=== PATIENT | male | born 1990 | race Caucasian/White ===

== ENCOUNTER 2020-07-18 01:06 | Emergency (ER) | payer SELFPAY ==
[~2020-07-18] VITALS: Ht 172.7 cm; Wt 61.2 kg
--- NOTE | 2020-07-18 01:10 | NUR ---
Dr Campos at bedside for MSE.
[2020-07-18] MEDS ORDERED: FAMOTIDINE. 20 MG/2 ML VIAL IV ONE ×2 (01:15→01:26)
[2020-07-18] MEDS ORDERED: methylPREDNISolone SOD SUCC 125 MG/2 ML VIAL IV ONE (01:15)
[2020-07-18] MEDS ORDERED: EPIN0.3P3 IJ (01:17)
[2020-07-18] MEDS ORDERED: methylPREDNISolone SOD SUCC 125 MG/2 ML VIAL ONE (01:26)
[2020-07-18 04:42] VITALS: BP 122/76
--- NOTE | 2020-07-18 04:52 | NUR ---
Patient has been cleared for DC by Dr Campos. IV removed. Catheter intact and site benign. Pressure and 4x4 gauze applied to site. No bleeding noted.Patient discharged to home in stable condition. Written and verbal after care instructions given. Patient verbalizes understanding of instructions. Stressed follow up or return to ER for worsening s/s. Ambulated out of ER in steady gait.
== END 2020-07-18 05:00 | disposition home or self-care (01) ==
LOC: ER 01:06
DX: T78.1XXA Other adverse food reactions, not elsewhere classified, initial encounter (principal); X58.XXXA Exposure to other specified factors, initial encounter; Z86.79 Personal history of other diseases of the circulatory system; R21 Rash and other nonspecific skin eruption; R00.0 Tachycardia, unspecified; Z91.018 Allergy to other foods; Z91.048 Other nonmedicinal substance allergy status
CPT/HCPCS: 96374; 96375; 99284; J2930; J3490; A4663

== ENCOUNTER 2025-06-20 13:51 | Emergency (ER) | payer SELFPAY ==
[~2025-06-20] VITALS: Ht 172.7 cm; Wt 67.1 kg
[~2025-06-20 13:51] MED LIST: EPIN0.3P3 IJ
[2025-06-20 14:51] LABS: PLATELET COUNT (AUTO) 254 K/uL (152-348); RED BLOOD CELL COUNT(AUTO) 5.56 MIL/uL (4.06-5.63); RED CELL DISTRIBUTION WIDTH 14.1 % (12.1-16.2); WHITE BLOOD COUNT (AUTO) 5.5 K/uL (3.6-10.2)
[2025-06-20 14:58] LABS: CREATININE 1.0 mg/dL (0.6-1.3); SODIUM SERUM 138 mmol/L (136-145); UREA NITROGEN, BLOOD 14 mg/dL (7-18)
[2025-06-20 15:04] LABS: ASPARTATE AMINOTRANSFERASE 20 U/L (15-37); TOTAL PROTEIN, SERUM 7.5 g/dL (6.4-8.2)
[2025-06-20 16:03] VITALS: BP 104/73
[2025-06-20 16:05] VITALS: BP 104/73; O2SAT 97
== END 2025-06-20 16:05 | disposition home or self-care (01) ==
LOC: ER 13:56
DX: R07.89 Other chest pain (principal); M94.0 Chondrocostal junction syndrome [Tietze]; R06.02 Shortness of breath
CPT/HCPCS: 36415; 71045; 84484; 85025; 85651; 85730; A4606; A4663